=== PATIENT | female | born 1935 | race Caucasian/White ===

== ENCOUNTER 2019-04-11 20:54 | Inpatient (IN) | payer MEDICARE, BC ==
[2019-04-11] MEDS ORDERED: NITROGLYCERIN SL TABS 0.4 MG TAB SUBLINGUAL PRN (21:06)
--- NOTE | 2019-04-11 21:06 | ED ---
Recheck HPI - General Stated Complaint: bradycardia Time Seen by Provider: 04/11/19 21:04 Source: RN notes reviewed, old records reviewed - History of Present Illness Initial Comments: This is a 4-year-old female the ER for evaluation she presents today from a transfer for evaluation regarding bradycardia low heart rate. Patient's presenting for the heart rate today. She denies chest pain denies shortness of breath no acute distress blood pressure normal. History obtained from pain per transferring paperwork as well as EMS. Again currently patient's asymptomatic MD Complaint: other (abnormal Heart Rate) -: unknown Returns Today for: other (request cardiology consult) Symptoms Since Prior Visit: no new symptoms Associated Symptoms: none - Related Data Allergies Allergy/AdvReac Type Severity Reaction Status Date / Time CLONIDINE PATCH ADHESIVE Allergy Rash/Hives Uncoded 04/11/19 21:09 Review of Systems ROS Statement: Those systems with pertinent positive or pertinent negative responses have been documented in the HPI. ROS Other: All systems not noted in ROS Statement are negative. General Exam General appearance: alert, in no apparent distress Head exam: Present: atraumatic, normocephalic, normal inspection Eye exam: Present: normal appearance, PERRL, EOMI. Absent: scleral icterus, conjunctival injection, periorbital swelling ENT exam: Present: normal exam, mucous membranes moist Neck exam: Present: normal inspection. Absent: tenderness, meningismus, lymphadenopathy Respiratory exam: Present: normal lung sounds bilaterally. Absent: respiratory distress, wheezes, rales, rhonchi, stridor Cardiovascular Exam: Present: normal rhythm, bradycardia, normal heart sounds. Absent: systolic murmur, diastolic murmur, rubs, gallop, clicks GI/Abdominal exam: Present: soft, normal bowel sounds. Absent: distended, tenderness, guarding, rebound, rigid Extremities exam: Present: normal inspection, full ROM, normal capillary refill. Absent: tenderness, pedal edema, joint swelling, calf tenderness Back exam: Present: normal inspection Neurological exam: Present: alert, oriented X3, CN II-XII intact Psychiatric exam: Present: normal affect, normal mood Skin exam: Present: warm, dry, intact, normal color. Absent: rash Course Vital Signs 04/11/19 20:57 Temperature 98.2 F Pulse Rate 42 L Respiratory 18 Rate Blood Pressure 173/82 O2 Sat by Pulse 97 Oximetry - Reevaluation(s) Reevaluation #1: 04/11/19 21:11 Medical record and transferring paperwork is thoroughly reviewed Reevaluation #2: 04/11/19 21:11 Patient is asymptomatic currently Medical Decision Making - Medical Decision Making 84 female be admitted for evaluation, patient presents today is accepted in transfer for low heart rate bradycardia, blood pressure normal patient is stable and can be admitted for cardiology to evaluate and telemetry Disposition Clinical Impression: Bradycardia Disposition: ADMITTED IP TO THIS HOSP Condition: Fair Instructions (If sedation given, give patient instructions): Bradycardia (ED) Is patient prescribed a controlled substance at d/c from ED?: No Referrals: Cammy Stevens MD [Primary Care Provider] - 1-2 days
[2019-04-11] MEDS: PANTOPRAZOLE 40 MG TABLET PO SCH (23:43)
[2019-04-11] MEDS: cloNIDine HCL 0.2 MG TAB PO SCH (23:43)
[2019-04-11] MEDS: SODIUM CHLORIDE 0.9% 1,000 ML IV SCH (23:44)
[2019-04-12 04:43] LABS: Cholesterol 193 mg/dL (<200); HDL Cholesterol 40 mg/dL (40-60); LDL Cholesterol,Calculated 116 mg/dL (0-99); Triglycerides 187 mg/dL (<150)
[2019-04-12] MEDS: LEVOTHYROXINE 50 MCG TAB PO SCH (06:47)
[2019-04-12] MEDS: MAGNESIUM OXIDE 400 MG TAB PO SCH (08:36)
[2019-04-12] MEDS: PANTOPRAZOLE 40 MG TABLET PO SCH (08:36)
[2019-04-12] MEDS: CYANOCOBALAMIN 500 MCG TAB PO SCH (08:36)
[2019-04-12] MEDS: FLUoxetine HCL 20 MG CAP PO SCH (08:36)
[2019-04-12] MEDS: ASPIRIN 325 MG TAB PO SCH (08:36)
[2019-04-12] MEDS: CHOLECALCIFEROL 1,000 UNIT TAB PO SCH (08:36)
[2019-04-12] MEDS: VITAMIN E (DL,TOCOPHERYL ACET) 400 UNIT CAP PO SCH (08:46)
[2019-04-12] MEDS ORDERED: NON-FORMULARY DRUG (Soy Isofla/Blk Cohosh/Mag Bark [Estroven 155 Mg Capsule] 155 MG) PO SCH (09:00)
[2019-04-12] MEDS: cloNIDine HCL 0.2 MG TAB PO SCH (11:47)
--- NOTE | 2019-04-12 15:41 | P.CRDCN ---
History of Present Illness Consult date: 04/12/19 History of present illness: This is a 84-year-old female with history of hypertension who was transferred from [facility] for evaluation of bradycardia. Patient apparently has history of hypertension and has been treated with clonidine recently. Patient was taking 0.1 mg by mouth twice a day. The medication was changed to Catapres patch which patient could not tolerate. Patient was put back on clonidine 0.2 mg by mouth twice a day. Patient's blood pressure is not well controlled. It is running still high in the range of 170-200 systolic. In addition, patient has been having exertional pain in between the shoulder radius radiating to the neck and the head. In view of the symptoms and bradycardia. Patient was transferred here for further evaluation. Her EKG showed severe bradycardia with rate of 40s. Patient also has been sleepy. I'm wondering if this could be side effect of the medication, Catapres. I'm going to wean down the dose to 0.1 mg by mouth twice a day and start her on hydralazine 25 mg by mouth twice a day. Apparently patient was taking amlodipine, but developed significant swelling of the legs. She could not tolerate losartan or it was ineffective. I may also add small dose of hydrochlorothiazide. We'll get an echocardiogram done. So far. 2. Cardiac troponins are negative. If patient continues to have this pain, may consider getting a computed tomography scan of the chest. Further recommendation will depend upon clinical course Review of Systems As per the chart Past Medical History Past Medical History: Cancer, GERD/Reflux, Hypertension, Rheumatoid Arthritis (RA), Thyroid Disorder Additional Past Medical History / Comment(s): bladder cancer; pancreatisis History of Any Multi-Drug Resistant Organisms: None Reported Past Surgical History: Cholecystectomy, Orthopedic Surgery, Tonsillectomy Additional Past Surgical History / Comment(s): bile duct bigger, bilateral knee replacements Past Psychological History: No Psychological Hx Reported Smoking Status: Former smoker Past Alcohol Use History: None Reported Past Drug Use History: None Reported Medications and Allergies Home Medications Medication Instructions Recorded Confirmed Type Aspirin/Acetaminophen/Caffeine 1 - 2 tab PO Q4-6H PRN 04/11/19 04/11/19 History [Excedrin Extra Strength Caplet] Cholecalciferol (Vitamin D3) 2,000 unit PO DAILY 04/11/19 04/11/19 History [Vitamin D3] Cyanocobalamin (Vitamin B-12) 5,000 mcg PO DAILY 04/11/19 04/11/19 History [Vitamin B-12] FLUoxetine HCL [PROzac] 20 mg PO DAILY 04/11/19 04/11/19 History Levothyroxine Sodium [Synthroid] 50 mcg PO DAILY 04/11/19 04/11/19 History Magnesium Oxide [Mag-Ox] 400 mg PO Q48H 04/11/19 04/11/19 History Omeprazole Magnesium [PriLOSEC OTC] 20 mg PO DAILY 04/11/19 04/11/19 History Pramipexole [Mirapex] 0.125 mg PO DAILY PRN 04/11/19 04/11/19 History Soy Isofla/Blk Cohosh/Mag Bark 155 mg PO DAILY 04/11/19 04/11/19 History [Estroven 155 mg Capsule] Vitamin E (Dl,Tocopheryl Acet) 400 unit PO DAILY 04/11/19 04/11/19 History [Vitamin E] cloNIDine HCL [Catapres] 0.2 mg PO BID 04/11/19 04/11/19 History Allergies Allergy/AdvReac Type Severity Reaction Status Date / Time CLONIDINE PATCH ADHESIVE Allergy Rash/Hives Uncoded 04/11/19 21:09 Physical Exam Vitals: Vital Signs Temp Pulse Pulse Resp BP BP BP 04/12/19 15:29 97.9 F 53 L 16 172/87 04/12/19 11:40 98.4 F 45 L 20 158/70 04/12/19 08:00 97.9 F 46 L 16 121/58 04/12/19 04:00 97.5 F L 46 L 20 179/85 04/12/19 00:00 41 L 20 04/11/19 23:48 98 F 41 L 20 178/82 04/11/19 22:41 97.8 F 44 L 20 185/82 04/11/19 21:27 42 L 16 159/80 04/11/19 20:57 98.2 F 42 L 18 173/82 Pulse Ox 04/12/19 15:29 94 L 04/12/19 11:40 97 04/12/19 08:00 96 04/12/19 04:00 99 04/12/19 00:00 04/11/19 23:48 97 04/11/19 22:41 98 04/11/19 21:27 96 04/11/19 20:57 97 Intake and Output 04/12/19 04/12/19 04/12/19 06:59 14:59 22:59 Intake Total 150 240 Balance 150 240 Intake: Oral 150 240 Other: Voiding Method Toilet Toilet # Voids 2 4 Weight 80.3 kg GENERAL EXAM: Patient is alert and oriented and doesn't appear to be in any acute distress HEENT: Normocephalic. Normal reaction of pupils, equal size, normal range of extraocular motion. No erythema or exudates in the throat. NECK: No masses, no nuchal rigidity. CHEST: No chest wall deformity. LUNGS: Equal air entry with no crackles or wheeze. HEART: S1 and S2 normal with no audible mumurs or gallops. Regular rhythm, femorals equal on both sides.. ABDOMEN: No hepatosplenomegaly, normal bowel sounds, no guarding or rigidity. SKIN: No rashes CENTRAL NERVOUS SYSTEM: No focal deficits. EXTREMITIES: No cyanosis, clubbing or edema. Results Cardiac Enzymes 04/11/19 04/12/19 Range/Units 22:22 03:57 Troponin I <0.012 <0.012 (0.000-0.034) ng/mL Lipids 04/12/19 Range/Units 03:57 Triglycerides 187 H (<150) mg/dL Cholesterol 193 (<200) mg/dL HDL Cholesterol 40 (40-60) mg/dL Current Medications Generic Name Dose Route Start Last Admin Trade Name Ousmaneq PRN Reason Stop Dose Admin Aspirin 325 mg 04/12/19 09:00 04/12/19 08:36 Aspirin PO 325 mg DAILY GEOFFREY Administration Cholecalciferol 2,000 unit 04/12/19 09:00 04/12/19 08:36 Vitamin D3 (25 Mcg = 1000 Iu) PO 2,000 unit DAILY GEOFFREY Administration Clonidine 0.1 mg 04/12/19 21:00 Catapres PO BID GEOFFREY Cyanocobalamin 1,000 mcg 04/12/19 09:00 04/12/19 08:36 Vitamin B-12 PO 1,000 mcg DAILY GEOFFREY Administration Fluoxetine HCl 20 mg 04/12/19 09:00 04/12/19 08:36 Prozac PO 20 mg DAILY GEOFFREY Administration Hydralazine HCl 25 mg 04/12/19 21:00 Apresoline PO BID GEOFFREY Sodium Chloride 1,000 mls @ 20 mls/hr 04/11/19 21:15 04/11/19 23:44 Saline 0.9% IV Not Given .Q24H GEOFFREY Levothyroxine Sodium 50 mcg 04/12/19 06:30 04/12/19 06:47 Synthroid PO 50 mcg DAILY@0630 GEOFFREY Administration Magnesium Oxide 400 mg 04/12/19 09:00 04/12/19 08:36 Mag-Ox PO 400 mg Q48H GEOFFREY Administration Nitroglycerin 0.4 mg 04/11/19 21:06 Nitrostat SUBLINGUAL Q5M PRN Chest Pain Pantoprazole Sodium 40 mg 04/11/19 23:30 04/12/19 08:36 Protonix PO 40 mg DAILY GEOFFREY Administration Pramipexole Dihydrochloride 0.125 mg 04/11/19 23:24 Mirapex PO HS PRN RLS Vitamin E 400 unit 04/12/19 09:00 04/12/19 08:46 Vitamin E PO 400 unit DAILY GEOFFREY Administration Intake and Output 04/12/19 04/12/19 04/12/19 06:59 14:59 22:59 Intake Total 150 240 Balance 150 240 Intake: Oral 150 240 Other: Voiding Method Toilet Toilet # Voids 2 4 Weight 80.3 kg EKG Interpretations (text) Sinus bradycardia Assessment and Plan (1) Uncontrolled hypertension Current Visit: Yes Status: Acute Code(s): I10 - ESSENTIAL (PRIMARY) HYPERTENSION SNOMED Code(s): 41115813 (2) Bradycardia Current Visit: Yes Status: Acute Code(s): R00.1 - BRADYCARDIA, UNSPECIFIED SNOMED Code(s): 11770367 (3) Back pain Current Visit: Yes Status: Acute Code(s): M54.9 - DORSALGIA, UNSPECIFIED SNOMED Code(s): 996542679 Plan: Patient has bradycardia with heart rate is a 40. Patient seemed to be feeling fatigued and tired. I'm going to wean her off the Catapres slowly. I'll start her on hydralazine and hydrochlorothiazide combination. We'll get an echocardiogram done. If patient continues to have back pain, a computed tomography scan of the chest could be considered. Once her blood pressure is controlled and her heart rate improved, may consider doing a Lexiscan stress test to rule out underlying ischemic heart disease.
--- NOTE | 2019-04-12 15:55 | P.HPIM ---
History of Present Illness H&P Date: 04/12/19 Faina Barrett is an 84-year-old female patient of Dr. canas who presented to emergency room at [facility] with a chief complaint of upper back pain and dizziness she was evaluated in the hospital and had evidence of significant hypertension and bradycardia she was transferred to [facility] for evaluation by cardiology. Patient stated that she has been tried on several blood pressure medication in the recent past. Currently she is maintained on Catapres 0.1 mg by mouth twice daily. patient denies any previous history of cardiac disease no history of coronary artery disease or congestive heart failure she has a remote history of smoking she quit in 1979. She has a known history of hypothyroidism and is maintained on Synthroid 50 g daily she also has a known history of depression maintained on Prozac. Past Medical History Past Medical History: Cancer, GERD/Reflux, Hypertension, Rheumatoid Arthritis (RA), Thyroid Disorder Additional Past Medical History / Comment(s): bladder cancer; pancreatisis History of Any Multi-Drug Resistant Organisms: None Reported Past Surgical History: Cholecystectomy, Orthopedic Surgery, Tonsillectomy Additional Past Surgical History / Comment(s): bile duct bigger, bilateral knee replacements Past Psychological History: No Psychological Hx Reported Smoking Status: Former smoker Past Alcohol Use History: None Reported Past Drug Use History: None Reported Medications and Allergies Home Medications Medication Instructions Recorded Confirmed Type Aspirin/Acetaminophen/Caffeine 1 - 2 tab PO Q4-6H PRN 04/11/19 04/11/19 History [Excedrin Extra Strength Caplet] Cholecalciferol (Vitamin D3) 2,000 unit PO DAILY 04/11/19 04/11/19 History [Vitamin D3] Cyanocobalamin (Vitamin B-12) 5,000 mcg PO DAILY 04/11/19 04/11/19 History [Vitamin B-12] FLUoxetine HCL [PROzac] 20 mg PO DAILY 04/11/19 04/11/19 History Levothyroxine Sodium [Synthroid] 50 mcg PO DAILY 04/11/19 04/11/19 History Magnesium Oxide [Mag-Ox] 400 mg PO Q48H 04/11/19 04/11/19 History Omeprazole Magnesium [PriLOSEC OTC] 20 mg PO DAILY 04/11/19 04/11/19 History Pramipexole [Mirapex] 0.125 mg PO DAILY PRN 04/11/19 04/11/19 History Soy Isofla/Blk Cohosh/Mag Bark 155 mg PO DAILY 04/11/19 04/11/19 History [Estroven 155 mg Capsule] Vitamin E (Dl,Tocopheryl Acet) 400 unit PO DAILY 04/11/19 04/11/19 History [Vitamin E] cloNIDine HCL [Catapres] 0.2 mg PO BID 04/11/19 04/11/19 History Allergies Allergy/AdvReac Type Severity Reaction Status Date / Time CLONIDINE PATCH ADHESIVE Allergy Rash/Hives Uncoded 04/11/19 21:09 Physical Exam Vitals: Vital Signs Temp Pulse Pulse Resp BP BP BP 04/12/19 15:29 97.9 F 53 L 16 172/87 04/12/19 11:40 98.4 F 45 L 20 158/70 04/12/19 08:00 97.9 F 46 L 16 121/58 04/12/19 04:00 97.5 F L 46 L 20 179/85 04/12/19 00:00 41 L 20 04/11/19 23:48 98 F 41 L 20 178/82 04/11/19 22:41 97.8 F 44 L 20 185/82 04/11/19 21:27 42 L 16 159/80 04/11/19 20:57 98.2 F 42 L 18 173/82 Pulse Ox 04/12/19 15:29 94 L 04/12/19 11:40 97 04/12/19 08:00 96 04/12/19 04:00 99 04/12/19 00:00 04/11/19 23:48 97 04/11/19 22:41 98 04/11/19 21:27 96 04/11/19 20:57 97 Intake and Output 04/12/19 04/12/19 04/12/19 06:59 14:59 22:59 Intake Total 150 240 Balance 150 240 Intake: Oral 150 240 Other: Voiding Method Toilet Toilet # Voids 2 4 Weight 80.3 kg In general patient is alert and oriented 3 in no apparent distress HEENT head normocephalic and atraumatic Neck is supple no JVD no goiter no lymphadenopathy Chest exam reveals a few scattered rhonchi no wheezing Cardiac exam reveals regular heart sounds no gallops no murmurs Abdomen is soft nontender no organomegaly with normal bowel sounds Extremity exam reveals no edema no cyanosis or clubbing Results Labs: Abnormal Lab Results - Last 24 Hours (Table) 04/12/19 Range/Units 03:57 Triglycerides 187 H (<150) mg/dL LDL Cholesterol, Calc 116 H (0-99) mg/dL Thrombosis Risk Factor Assmnt - Choose All That Apply Each Factor Represents 1 point: Obesity (BMI >25), Varicose veins Other Risk Factors: Yes Each Risk Factor Represents 3 Points: Age 75 years or older Other congenital or acquired thrombophilia - If yes, enter type in comment: No Thrombosis Risk Factor Assessment Total Risk Factor Score: 5 Thrombosis Risk Factor Assessment Level: High Risk Assessment and Plan Plan: #1 hypertension was hypertensive emergency #2 episodes of upper back pain with activity #3 episodes of dizziness #4 bradycardia heart rate 40-45 bpm #5 underlying history of hypothyroidism Will check TSH #6 underlying history of depression At this time will check echocardiogram and carotid Doppler Cardiology consultation has been requested Continue to monitor on telemetry Check TSH and adjust thyroid medication if needed Check thoracic spine x-ray rule out vertebral fracture Will follow in a.m.
[2019-04-12] MEDS: HYDROCHLOROTHIAZIDE 12.5 MG CAP PO SCH (16:10)
--- NOTE | 2019-04-12 17:15 | XR ---
EXAMINATION TYPE: XR thoracic spine complete DATE OF EXAM: 04/12/2019 Comparison: None Clinical History: 84-year-old female upper back pain Findings: Osteopenia. 12 rib bearing thoracic vertebral bodies. All pedicles are visualized. Accentuated mid th oracic kyphosis with moderate endplate spondylosis. Vertebral body heights are preserved and alignmen t is maintained. Impression: Moderate endplate spondylosis with accentuated midthoracic kyphosis. No vertebral compression collaps e or malalignment seen.
--- NOTE | 2019-04-12 18:45 | US ---
EXAMINATION TYPE: US carotid duplex BILAT DATE OF EXAM: 04/12/2019 COMPARISON: NONE CLINICAL HISTORY: 84-year-old female with Dizziness TECHNIQUE: Carotid duplex ultrasound examination. Indirect Doppler criteria is utilized. FINDINGS: EXAM MEASUREMENTS: RIGHT: Peak Systolic Velocity (PSV) cm/sec ----- Right CCA: 79.4 ----- Right ICA: 63.7 ----- Right ECA: 61.5 ICA/CCA ratio: 0.8 RIGHT: End Diastole cm/sec ----- Right CCA: 12.3 ----- Right ICA: 12.9 ----- Right ECA: 0.0 LEFT: Peak Systolic Velocity (PSV) cm/sec ----- Left CCA: 81.7 ----- Left ICA: 73.4 ----- Left ECA: 46.1 ICA/CCA ratio: 0.9 LEFT: End Diastole cm/sec ----- Left CCA: 12.4 ----- Left ICA: 20.2 ----- Left ECA: 4.7 VERTEBRALS (direction of flow): Right Vertebral: Antegrade Left Vertebral: Antegrade Rhythm: Normal Moderate atherosclerotic changes at the right bifurcation and mild on the left. IMPRESSION: No hemodynamically significant stenosis appreciated in either internal carotid artery. Criteria for Assigning % of Stenosis / Diameter reduction (Estimation based on the indirect measurements of the internal carotid artery velocities (ICA PSV). 1. Normal (no stenosis)=ICA PSV < 125 cm/s: ratio < 2.0: ICA EDV<40 cm/s. 2. Less than 50% stenosis=ICA PSV < 125 cm/s: ratio < 2.0: ICA EDV<40 cm/s. 3. 50 to 69% stenosis=ICA PSV of 125 to 230 cm/s: ration 2.0 ? 4.0: ICA EDV 40-100 cm/s. 4. Greater than 70% stenosis to near occlusion= ICA PSV > 230 cm/s: ratio > 4.0: ICA EDV > 100 cm/s. 5. Near occlusion= ICA PSV velocities may be low or undetectable: variable ratio and ICA EDV. 6. Total occlusion=unable to detect flow.
[2019-04-12] MEDS: hydrALAZINE HCL 25 MG TAB PO SCH (20:49)
[2019-04-12] MEDS: cloNIDine HCL 0.1 MG TAB PO SCH (20:50)
[2019-04-13] MEDS: SODIUM CHLORIDE 0.9% 1,000 ML IV SCH (01:03)
[2019-04-13] MEDS: PRAMIPEXOLE 0.125 MG TAB PO PRN ×2 (02:13→22:16)
[2019-04-13] MEDS: LEVOTHYROXINE 50 MCG TAB PO SCH (06:41)
[2019-04-13 07:04] LABS: Basophils % (A) 1 %; Eosinophils # (A) 0.2 k/uL (0-0.7); Eosinophils % (A) 4 %; HCT 34.7 % (34.0-46.0); HGB 10.6 gm/dL (11.4-16.0); Lymphocytes % (A) 34 %; MCHC 30.5 g/dL (31.0-37.0); MCV 88.5 fL (80.0-100.0); Mean Platelet Volume 7.8; Monocytes # (A) 0.3 k/uL (0-1.0); Monocytes % (A) 5 %; Neutrophils # (A) 3.2 k/uL (1.3-7.7); Neutrophils % (A) 55 %; Platelet Count 258 k/uL (150-450); RBC 3.92 m/uL (3.80-5.40); RDW 14.3 % (11.5-15.5); WBC 5.9 k/uL (3.8-10.6)
[2019-04-13 07:20] LABS: Albumin 4.2 g/dL (3.5-5.0); Calcium 9.7 mg/dL (8.4-10.2); Potassium 4.4 mmol/L (3.5-5.1); Total Bilirubin 0.4 mg/dL (0.2-1.3); Total Protein 6.9 g/dL (6.3-8.2)
[2019-04-13] MEDS: ASPIRIN 325 MG TAB PO SCH (08:18)
[2019-04-13] MEDS: CYANOCOBALAMIN 500 MCG TAB PO SCH (08:19)
[2019-04-13] MEDS: cloNIDine HCL 0.1 MG TAB PO SCH ×2 (08:19→21:30)
[2019-04-13] MEDS: PANTOPRAZOLE 40 MG TABLET PO SCH (08:19)
[2019-04-13] MEDS: HYDROCHLOROTHIAZIDE 12.5 MG CAP PO SCH (08:19)
[2019-04-13] MEDS: VITAMIN E (DL,TOCOPHERYL ACET) 400 UNIT CAP PO SCH (08:19)
[2019-04-13] MEDS: FLUoxetine HCL 20 MG CAP PO SCH (08:19)
[2019-04-13] MEDS: CHOLECALCIFEROL 1,000 UNIT TAB PO SCH (08:19)
[2019-04-13 08:57] LABS: T4, Free (Free Thyroxine) 1.01 ng/dL (0.78-2.19)
[2019-04-13] MEDS: hydrALAZINE HCL 25 MG TAB PO SCH (11:04)
--- NOTE | 2019-04-13 12:28 | P.PN ---
Subjective Progress Note Date: 04/13/19 This 84-year-old female is admitted to the hospital with back pain and also bradycardia. We cut back the dose of the Catapres to 0.1 mg by mouth twice a day. Patient was initiated on hydralazine and hydrochlorothiazide. Patient is been feeling well since yesterday. Her blood pressure is better controlled. Heart rate seems to be going and improving to the range of 50. I'm going cut back the dose of the Catapres to 0.1 mg and probably will taper it off if necessary. Increase activity as tolerated Objective - Vital Signs Vital signs: Vital Signs Temp 97.9 F 04/13/19 11:04 Pulse 48 L 04/13/19 11:04 Resp 16 04/13/19 11:04 BP 160/72 04/13/19 11:04 Pulse Ox 96 04/13/19 11:04 Intake & Output 04/12/19 04/13/19 04/13/19 18:59 06:59 18:59 Intake Total 717 480 Balance 717 480 Weight 79.6 kg Intake: Oral 717 480 Other: Voiding Method Toilet Toilet # Voids 4 1 - Exam GENERAL EXAM: Patient is alert and oriented and doesn't appear to be in any acute distress HEENT: Normocephalic. Normal reaction of pupils, equal size, normal range of extraocular motion. No erythema or exudates in the throat. NECK: No masses, no nuchal rigidity. CHEST: No chest wall deformity. LUNGS: Equal air entry with no crackles or wheeze. HEART: S1 and S2 normal with no audible mumurs or gallops. Regular rhythm, femorals equal on both sides.. ABDOMEN: No hepatosplenomegaly, normal bowel sounds, no guarding or rigidity. SKIN: No rashes CENTRAL NERVOUS SYSTEM: No focal deficits. EXTREMITIES: No cyanosis, clubbing or edema. - Labs CBC & Chem 7: 04/13/19 06:15 04/13/19 06:15 Labs: Abnormal Lab Results - Last 24 Hours (Table) 04/13/19 04/13/19 Range/Units 06:15 06:15 Hgb 10.6 L (11.4-16.0) gm/dL MCHC 30.5 L (31.0-37.0) g/dL BUN 21 H (7-17) mg/dL Creatinine 1.18 H (0.52-1.04) mg/dL TSH 6.980 H (0.465-4.680) mIU/L Assessment and Plan (1) Uncontrolled hypertension Current Visit: Yes Status: Acute Code(s): I10 - ESSENTIAL (PRIMARY) HY PERTENSION SNOMED Code(s): 27752222 (2) Bradycardia Current Visit: Yes Status: Acute Code(s): R00.1 - BRADYCARDIA, UNSPECIFIED SNOMED Code(s): 33705898 (3) Back pain Current Visit: Yes Status: Acute Code(s): M54.9 - DORSALGIA, UNSPECIFIED SNOMED Code(s): 014720441 Plan: Patient is feeling much better. Her blood pressure is better controlled. We'll taper off Catapres slowly. Increase the dose of hydralazine. Increase activity
--- NOTE | 2019-04-13 12:43 | P.PN ---
Subjective Progress Note Date: 04/13/19 Faina Barrett is an 84-year-old female patient of Dr. canas who presented to emergency room at [facility] with a chief complaint of upper back pain and dizziness she was evaluated in the hospital and had evidence of significant hypertension and bradycardia she was transferred to [facility] for evaluation by cardiology. Patient stated that she has been tried on several blood pressure medication in the recent past. Currently she is maintained on Catapres 0.1 mg by mouth twice daily. patient denies any previous history of cardiac disease no history of coronary artery disease or congestive heart failure she has a remote history of smoking she quit in 1979. She has a k nown history of hypothyroidism and is maintained on Synthroid 50 g daily she also has a known history of depression maintained on Prozac. On 04/13/2019 patient is seen and examined on the medical floor she is alert and oriented 3 in no apparent distress heart rate is still low at 46-48 bpm her u pper back pain has improved, she denies any other symptoms at this time there is no fever or chills no headache or dizziness no chest pain no shortness of breath no cough no nausea or vomiting no abdominal pain no diarrhea and no urinary symptoms. Per cardiology, taper off clonidine and start hydralazine and hydrochlorothiazide. Also patient TSH was elevated with increased dose of Synthroid from 50 g daily to 75 g daily Objective - Vital Signs Vital signs: Vital Signs Temp 98.2 F 04/13/19 08:00 Pulse 52 L 04/13/19 08:00 Resp 20 04/13/19 08:00 BP 123/58 04/13/19 08:00 Pulse Ox 100 04/13/19 08:00 Intake & Output 04/12/19 04/13/19 04/13/19 18:59 06:59 18:59 Intake Total 717 480 Balance 717 480 Weight 79.6 kg Intake: Oral 717 480 Other: Voiding Method Toilet Toilet # Voids 4 1 - Exam In general patient is alert and oriented 3 in no apparent distress HEENT head normocephalic and atraumatic Neck is supple no JVD no goiter no lymphadenopathy Chest exam reveals a few scattered rhonchi no wheezing Cardiac exam reveals regular heart sounds no gallops no murmurs Abdomen is soft nontender no organomegaly with normal bowel sounds Extremity exam reveals no edema no cyanosis or clubbing - Labs CBC & Chem 7: 04/13/19 06:15 04/13/19 06:15 Labs: Abnormal Lab Results - Last 24 Hours (Table) 04/13/19 04/13/19 Range/Units 06:15 06:15 Hgb 10.6 L (11.4-16.0) gm/dL MCHC 30.5 L (31.0-37.0) g/dL BUN 21 H (7-17) mg/dL Creatinine 1.18 H (0.52-1.04) mg/dL TSH 6.980 H (0.465-4.680) mIU/L Assessment and Plan Plan: #1 hypertension was hypertensive emergency #2 episodes of upper back pain with activity #3 episodes of dizziness, carotid Doppler done no evidence of any significant stenosis #4 bradycardia heart rate 40-45 bpm #5 underlying history of hypothyroidism. TSH elevated at 6.98 increase Synthroid dose from 50 g daily to 75 g daily #6 underlying history of depression At this time will check echocardiogram and carotid Doppler Cardiology consultation has been requested Continue to monitor on telemetry thoracic spine x-ray rule done and reveals evidence of arthritis, no evidence of vertebral fracture Will follow in a.m.
[2019-04-13] MEDS ORDERED: BENZOCAINE 20 % GEL 15 GM TUBE MM PRN (17:49)
[2019-04-13] MEDS: hydrALAZINE HCL 50 MG TAB PO SCH (22:13)
[2019-04-14] MEDS ORDERED: LEVOTHYROXINE 75 MCG TAB PO SCH (06:30)
[2019-04-14 06:57] VITALS: RESP 18
[2019-04-14] MEDS: SODIUM CHLORIDE 0.9% 1,000 ML IV SCH (06:58)
[2019-04-14 07:06] LABS: Basophils # (A) 0.1 k/uL (0-0.2); Basophils % (A) 1 %; Eosinophils # (A) 0.3 k/uL (0-0.7); Eosinophils % (A) 5 %; HCT 35.4 % (34.0-46.0); Hypochromasia Slight; Lymphocytes # (A) 1.8 k/uL (1.0-4.8); Lymphocytes % (A) 32 %; MCH 27.2 pg (25.0-35.0); MCHC 31.2 g/dL (31.0-37.0); MCV 87.3 fL (80.0-100.0); Mean Platelet Volume 8.2; Monocytes # (A) 0.3 k/uL (0-1.0); Monocytes % (A) 6 %; Neutrophils % (A) 54 %; Platelet Count 240 k/uL (150-450); RBC 4.05 m/uL (3.80-5.40); RDW 14.9 % (11.5-15.5); WBC 5.6 k/uL (3.8-10.6)
[2019-04-14 07:31] LABS: Albumin 4.3 g/dL (3.5-5.0); Calcium 9.9 mg/dL (8.4-10.2); Potassium 4.9 mmol/L (3.5-5.1); Total Bilirubin 0.5 mg/dL (0.2-1.3); Total Protein 7.2 g/dL (6.3-8.2)
[2019-04-14] MEDS: VITAMIN E (DL,TOCOPHERYL ACET) 400 UNIT CAP PO SCH (08:18)
[2019-04-14] MEDS: CYANOCOBALAMIN 500 MCG TAB PO SCH (08:18)
[2019-04-14] MEDS: ASPIRIN 325 MG TAB PO SCH (08:18)
[2019-04-14] MEDS: PANTOPRAZOLE 40 MG TABLET PO SCH (08:18)
[2019-04-14] MEDS: MAGNESIUM OXIDE 400 MG TAB PO SCH (08:18)
[2019-04-14] MEDS: CHOLECALCIFEROL 1,000 UNIT TAB PO SCH (08:18)
[2019-04-14] MEDS: HYDROCHLOROTHIAZIDE 12.5 MG CAP PO SCH (08:18)
[2019-04-14] MEDS: hydrALAZINE HCL 50 MG TAB PO SCH (08:19)
[2019-04-14] MEDS: FLUoxetine HCL 20 MG CAP PO SCH (08:19)
[2019-04-14] MEDS ORDERED: cloNIDine HCL 0.1 MG TAB PO SCH (09:00)
--- NOTE | 2019-04-14 09:31 | ECHOF ---
Referral Reason:Chest pain and cardiomyopathy MEASUREMENTS -------- HEIGHT: 157.5 cm WEIGHT: 79.4 kg BP: 143/66 IVSd: 1.5 cm (0.6 - 1.1) LVIDd: 3.7 cm (3.9 - 5.3) LVPWd: 1.5 cm (0.6 - 1.1) IVSs: 1.9 cm LVIDs: 1.5 cm LVPWs: 1.7 cm LAESV Index (A-L): 32.69 ml/m Ao Diam: 2.7 cm (2.0 - 3.7) AV Cusp: 1.3 cm (1.5 - 2.6) LA Diam: 3.6 cm (2.7 - 3.8) MV EXCURSION: 13.189 mm (> 18.000) MV EF SLOPE: 58 mm/s (70 - 150) EPSS: 0.4 cm MV E Mukund: 1.01 m/s MV DecT: 312 ms MV A Mukund: 1.29 m/s MV E/A Ratio: 0.78 AV maxP.58 mmHg AV meanP.88 mmHg RAP: 5.00 mmHg RVSP: 42.15 mmHg FINDINGS -------- Sinus rhythm. This was a technically good study. The left ventricular size is normal. There is moderate concentric left ventricular hypertrophy. O verall left ventricular systolic function is normal with, an EF between 55 - 60 %. The right ventricle is normal in size. LA is midly dilated 29-33ml/m2. The right atrial size is normal. There is moderate aortic valve sclerosis. There is mild aortic stenosis present. Peak/mean gradie nt across the Aortic Valve is 28.58mmHg / 15.88mmHg. The mitral valve leaflets are mildly thickened. Moderate mitral annular calcification present. Mi ld mitral regurgitation is present. [id number] tricuspid regurgitation present. There is mild pulmonary hypertension. The right ventricular systolic pressure, as measured by Doppler, is 42.15mmHg. There is no pulmonic regurgitation present. The aortic root size is normal. Normal inferior vena cava with normal inspiratory collapse consistent with estimated right atrial pre ssure of 5 mmHg. There is no pericardial effusion. CONCLUSIONS -------- 1. Sinus rhythm. 2. This was a technically good study. 3. The left ventricular size is normal. 4. There is moderate concentric left ventricular hypertrophy. 5. Overall left ventricular systolic function is normal with, an EF between 55 - 60 %. 6. LA is midly dilated 29-33ml/m2. 7. There is moderate aortic valve sclerosis. 8. There is mild aortic stenosis present. 9. Peak/mean gradient across the Aortic Valve is 28.58mmHg / 15.88mmHg. 10. The mitral valve leaflets are mildly thickened. 11. Moderate mitral annular calcification present. 12. Mild mitral regurgitation is present. 13. Anbp-yn-bmuxqoiv tricuspid regurgitation present. 14. There is mild pulmonary hypertension. 15. There is no pulmonic regurgitation present. 16. The aortic root size is normal. 17. Normal inferior vena cava with normal inspiratory collapse consistent with estimated right atrial pressure of 5 mmHg. 18. There is no pericardial effusion. LEATHER POLISHER: Evita Hicks RDCS
[2019-04-14 12:16] VITALS: PULSE 55; TEMP 97.7
[2019-04-14 13:54] VITALS: BP 166/74
--- NOTE | 2019-04-14 14:23 | P.DS ---
Providers Date of admission: 04/11/19 21:06 Expected date of discharge: 04/14/19 Attending physician: Latricia Huff Consults: 04/11/19 21:06 Consult Physician Urgent Consulting Provider: Sofia La Consult Reason/Comments: chastity Do you want consulting provider notified?: Yes Primary care physician: Cammy Stevens Hospital Course: Discharge diagnosis #1 hypertension was hypertensive emergency #2 episodes of upper back pain with activity #3 episodes of dizziness, carotid Doppler done no evidence of any significant stenosis #4 bradycardia heart rate 40-45 bpm #5 underlying history of hypothyroidism. TSH elevated at 6.98 increase Synthroid dose from 50 g daily to 75 g daily #6 underlying history of depression thoracic spine x-ray rule done and reveals evidence of arthritis, no evidence of vertebral fracture Carotid Doppler completed showing no hemodynamically significant stenosis in either internal carotid artery 2-D echo completed showing EF of 55-60% Hydralazine 50mg 3 times a day on discharge and hydrochlorothiazide will 0.5 by mouth daily cardiology Catapres 0.1 mg by mouth daily per cardiology. Patient to follow-up [facility] cardio logy for eventual d/c of medication Hospital course Faina Barrett is an 84-year-old female patient of Dr. stevens who presented to emergency room at [facility] with a chief complaint of upper back pain and dizziness she was evaluated in the hospital and had evidence of significant hypertension and bradycardia she was transferred to [facility] for evaluation by cardiology. Patient stated that she has been tried on several blood pressure medication in the recent past. Currently she is maintained on Catapres 0.1 mg by mouth twice daily. patient denies any previous history of cardiac disease no history of coronary artery disease or congestive heart failure she has a remote history of smoking she quit in 1979. She has a known history of hypothyroidism and is maintained on Synthroid 50 g daily she also has a known history of depression maintained on Prozac. On 04/13/2019 patient is seen and examined on the medical floor she is alert and oriented 3 in no apparent distress heart rate is still low at 46-48 bpm her upper back pain has improved, she denies any other symptoms at this time there is no fever or chills no headache or dizziness no chest pain no shortness of breath no cough no nausea or vomiting no abdominal pain no diarrhea and no urinary symptoms. Per cardiology, taper off clonidine and start hydralazine and hydrochlorothiazide. Also patient TSH was elevated with increased dose of Synthroid from 50 g daily to 75 g daily On 04/14/2019 patient is alert and oriented 3. Heart rate has been in the high 50s and 60s. Discussed with cardiology BLACKJACK DEALER Dr. Mess. Beltran for discharge home. Patient to be DC'd on lower dose of Catapres 0.1 mg daily per cardiology and followed cardiology services for further management. Patient was started on hydrochlorothiazide and hydralazine for hypertension. Hydralazine has been increased to 3 times a day due to elevated blood pressure. Blood pressure has improved. Patient feels ready to be DC'd home. Patient denies chest pain or shortness breath. Patient denies nausea vomiting or diarrhea. Patient denies any urinary burning or frequency. Patient Synthroid also increased to 75 ug daily. Patient to follow with PCP and cardiology services for further management I performed an examination of the patient and discussed their management with the Nurse Practitioner. I have reviewed the Nurse Practitioner's notes and agree with the documented findings and plan of care Patient Condition at Discharge: Stable Plan - Discharge Summary Discharge Rx Participant: No New Discharge Prescriptions: New hydrALAZINE HCL [Apresoline] 50 mg PO TID 30 Days #90 tab Aspirin 81 mg PO DAILY 30 Days #30 chew cloNIDine HCL [Catapres] 0.1 mg PO DAILY 30 Days #30 tab Hydrochlorothiazide [Hydrodiuril] 12.5 mg PO DAILY 30 Days #30 cap Levothyroxine Sodium [Synthroid] 75 mcg PO DAILY@0630 30 Days #30 tab Continue Magnesium Oxide [Mag-Ox] 400 mg PO Q48H Vitamin E (Dl,Tocopheryl Acet) [Vitamin E] 400 unit PO DAILY Soy Isofla/Blk Cohosh/Mag Bark [Estroven 155 mg Capsule] 155 mg PO DAILY Pramipexole [Mirapex] 0.125 mg PO DAILY PRN PRN Reason: RLS Cyanocobalamin (Vitamin B-12) [Vitamin B-12] 5,000 mcg PO DAILY Cholecalciferol (Vitamin D3) [Vitamin D3] 2,000 unit PO DAILY Omeprazole Magnesium [PriLOSEC OTC] 20 mg PO DAILY FLUoxetine HCL [PROzac] 20 mg PO DAILY Aspirin/Acetaminophen/Caffeine [Excedrin Extra Strength Caplet] 1 - 2 tab PO Q4-6H PRN PRN Reason: Migraine Headache Discontinued cloNIDine HCL [Catapres] 0.2 mg PO BID Levothyroxine Sodium [Synthroid] 50 mcg PO DAILY Discharge Medication List Aspirin/Acetaminophen/Caffeine [Excedrin Extra Strength Caplet] 1 - 2 tab PO Q4- 6H PRN 04/11/19 [History] Cholecalciferol (Vitamin D3) [Vitamin D3] 2,000 unit PO DAILY 04/11/19 [History] Cyanocobalamin (Vitamin B-12) [Vitamin B-12] 5,000 mcg PO DAILY 04/11/19 [History] FLUoxetine HCL [PROzac] 20 mg PO DAILY 04/11/19 [History] Magnesium Oxide [Mag-Ox] 400 mg PO Q48H 04/11/19 [History] Omeprazole Magnesium [PriLOSEC OTC] 20 mg PO DAILY 04/11/19 [History] Pramipexole [Mirapex] 0.125 mg PO DAILY PRN 04/11/19 [History] Soy Isofla/Blk Cohosh/Mag Bark [Estroven 155 mg Capsule] 155 mg PO DAILY 04/11/19 [History] Vitamin E (Dl,Tocopheryl Acet) [Vitamin E] 400 unit PO DAILY 04/11/19 [History] Aspirin 81 mg PO DAILY 30 Days #30 chew 04/14/19 [Rx] Hydrochlorothiazide [Hydrodiuril] 12.5 mg PO DAILY 30 Days #30 cap 04/14/19 [Rx] Levothyroxine Sodium [Synthroid] 75 mcg PO DAILY@0630 30 Days #30 tab 04/14/19 [Rx] cloNIDine HCL [Catapres] 0.1 mg PO DAILY 30 Days #30 tab 04/14/19 [Rx] hydrALAZINE HCL [Apresoline] 50 mg PO TID 30 Days #90 tab 04/14/19 [Rx] Follow up Appointment(s)/Referral(s): Cammy Stevens MD [Primary Care Provider] - 04/21/19 1:15 pm (Sunday) Volodymyr Howard MD [STAFF PHYSICIAN] - 1 Week ([facility] office will call you at home to let you know if you can see Dr. Howard in [facility]) Ambulatory/Diagnostic Orders: Comprehensive Metabolic Panel [LAB.AMB] Time Frame: 2 Days, Location: None Selected Patient Instructions/Handouts: Bradycardia (ED) Activity/Diet/Wound Care/Special Instructions: activity as tolerated Diet heart healthy Discharge Disposition: HOME SELF-CARE
[2019-04-14] MEDS ORDERED: HYDROCHLOROTHIAZIDE 25 MG TAB PO SCH (15:30)
--- NOTE | 2019-04-14 15:31 | P.PN ---
Subjective Progress Note Date: 04/14/19 This is a 84-year-old female with history of hypertension who was transferred from [facility] for evaluation of bradycardia. Patient apparently has history of hypertension and has been treated with clonidine recently. Patient was taking 0.1 mg by mouth twice a day. The medication was changed to Catapres patch which patient could not tolerate. Patient was put back on clonidine 0.2 mg by mouth twice a day. Patient's blood pressure is not well controlled. It is running still high in the range of 170-200 systolic. In addition, patient has been having exertional pain in between the shoulder radius radiating to the neck and the head. In view of the symptoms and bradycardia. Patient was transferred here for further evaluation. Her EKG showed severe bradycardia with rate of 40s. Patient also has been sleepy. I'm wondering if this could be side effect of the medication, Catapres. I'm going to wean down the dose to 0.1 mg by mouth twice a day and start her on hydralazine 25 mg by mouth twice a day. Apparently patient was taking amlodipine, but developed significant swelling of the legs. She could not tolerate losartan or it was ineffective. I may also add small dose of hydrochlorothiazide. We'll get an echocardiogram done. So far. 2. Cardiac troponins are negative. If patient continues to have this pain, may consider getting a computed tomography scan of the chest. Further recommendation will depend upon clinical course. 04/14/2019 Patient seen and examined this morning, doing well overall. Heart rate in the high 50s to low 60s. Blood pressure in the 140 range earlier today, then it went up to 190 systolic. We will increase the hydrochlorothiazide to 25 mg daily and continue the patient's other medications. Echocardiogram with Doppler study was performed which revealed a normal left ventricular systolic function.. Objective - Vital Signs Vital signs: Vital Signs Temp 97.7 F 04/14/19 12:14 Pulse 55 L 04/14/19 12:14 Resp 18 04/14/19 12:14 BP 166/74 04/14/19 13:53 Pulse Ox 98 04/14/19 12:14 Intake & Output 04/13/19 04/14/19 04/14/19 18:59 06:59 18:59 Intake Total 1320 720 Balance 1320 720 Weight 77.8 kg Intake: IV 0 Sodium Chloride 0.9% 1, 0 000 ml @ 20 mls/hr IV . Q24H [facility] Rx#:[id number] Oral 1320 720 Other: Voiding Method Toilet Toilet Toilet # Voids 1 4 - Exam GENERAL EXAM: Patient is alert and oriented and doesn't appear to be in any acut e distress HEENT: Normocephalic. Normal reaction of pupils, equal size, normal range of extraocular motion. No erythema or exudates in the throat. NECK: No masses, no nuchal rigidity. CHEST: No chest wall deformity. LUNGS: Equal air entry with no crackles or wheeze. HEART: S1 and S2 normal with no audible mumurs or gallops. Regular rhythm, femorals equal on both sides.. ABDOMEN: No hepatosplenomegaly, normal bowel sounds, no guarding or rigidity. SKIN: No rashes CENTRAL NERVOUS SYSTEM: No focal deficits. EXTREMITIES: No cyanosis, clubbing or edema. - Labs CBC & Chem 7: 04/14/19 06:17 04/14/19 06:17 Labs: Abnormal Lab Results - Last 24 Hours (Table) 04/14/19 04/14/19 Range/Units 06:17 06:17 Hgb 11.0 L (11.4-16.0) gm/dL BUN 23 H (7-17) mg/dL Creatinine 1.22 H (0.52-1.04) mg/dL Assessment and Plan Plan: Assessment and plan #1 hypertensive emergency, blood pressure today 140/80, 190/60, we will increase hydrochlorothiazide to 25 mg daily #2 bradycardia resolved #3 underlying history of hypothyroidism #4 depression Plan From cardiology's perspective, we'll increase the Hytrin or thiazide to 25 mg daily, patient may be able to be discharged home from our perspective and we'll make her a follow-up appointment in the office post discharge. DNP note has been reviewed, I agree with a documented findings and plan of care. Patient was seen and examined.
[2019-04-14] MEDS ORDERED: hydrALAZINE HCL 50 MG TAB PO SCH (16:00)
[2019-04-15] MEDS ORDERED: ASPIRIN 81 MG PO SCH (09:00)
== END 2019-04-14 15:56 | disposition home or self-care (01) | DRG 305 ==
LOC: EC 20:54 → 3SCARD 21:06
PROVIDERS: ADMIT Internal Medicine; ATTEND Internal Medicine
DX: I16.1 Hypertensive emergency (principal); R00.1 Bradycardia, unspecified; I10 Essential (primary) hypertension; E03.9 Hypothyroidism, unspecified; F32.9 Major depressive disorder, single episode, unspecified; M54.6 Pain in thoracic spine; K21.9 Gastro-esophageal reflux disease without esophagitis; M06.9 Rheumatoid arthritis, unspecified; Z96.653 Presence of artificial knee joint, bilateral; Z85.51 Personal history of malignant neoplasm of bladder; Z90.49 Acquired absence of other specified parts of digestive tract; Z87.891 Personal history of nicotine dependence; Z79.82 Long term (current) use of aspirin; Z79.890 Hormone replacement therapy; Z79.899 Other long term (current) drug therapy; Z88.8 Allergy status to other drugs, medicaments and biological substances
CPT/HCPCS: 72072; 80053; 80061; 84439; 84443; 84484; 85025; 93005; 93306; 93880; 99285

== ENCOUNTER → 2019-06-13 | Day surgery (SDC) | payer MEDICARE, BC ==
[2019-06-09 09:28] VITALS: BMI 29.9
[~2019-06-13] MED LIST: ALPRAZolam 0.25 MG TAB PO PRN; ALPRAZolam 0.5 MG TAB PO PRN; ASPIRIN 325 MG TAB PO STA; ATORVASTATIN 80 MG TAB PO STA; IOPAMIDOL-370 100ML BTL INJ ONE; LIDOCAINE 1% INJ 10MG/ML (20 ML MDV) ONE; LIDOCAINE 1% INJ 10MG/ML (20 ML MDV) SQ ONE; MIDAZOLAM PF (FBP) 2 MG/2 ML VIAL IVP ONE; NITROGLYCERIN SL TABS 0.4 MG TAB SUBLINGUAL PRN; RX INFO: IV CONTRAST WAS GIVEN 1 EACH MISC MISCELLANE PRN; SODIUM CHLORIDE 0.9% 1,000 ML IV ONE; SODIUM CHLORIDE 0.9% 1,000 ML IV SCH; SODIUM CHLORIDE 0.9% 1,000 ML in EMPTY BAG 1 BAG IV ONE; VERAPAMIL 2.5 MG/ML 2 ML AMP ONE
[2019-06-13 08:33] VITALS: TEMP 97.9
[2019-06-13 08:38] LABS: Calcium 9.3 mg/dL (8.4-10.2)
--- NOTE | 2019-06-13 10:08 | CC ---
CARDIAC CATHETERIZATION REPORT DATE OF SERVICE: June 13, 2019 PERFORMING PHYSICIAN: Volodymyr Howard MD, free lance model. PROCEDURE PERFORMED: 1. Selective right and left coronary angiogram. 2. Left heart catheterization. COMPLICATION: None. LEVEL OF SEDATION: Moderate with sedation length of 17 minutes. PROCEDURE DESCRIPTION: After obtaining an informed consent, the patient was brought to the cardiac civil laboratory technician. The right common femoral artery was cannulated using micropuncture technique, the micropuncture wire passed easily then I placed a 5-Thai sheath. I did selective right and left coronary angiogram using JR4 and JL4 catheters. Left heart catheterization was performed using pigtail catheter. The procedure was completed without any complication. SELECTIVE CORONARY ANGIOGRAM: 1. The right coronary artery is a small to medium caliber vessel and it is a nondominant vessel, appeared to be angiographically normal. 2. The left main is angiographically normal. It bifurcates into dominant left circumflex and left anterior descending artery. 3. The left circumflex is a large caliber vessel. It is a dominant. The left circumflex proximally is tortuous, but normal and gives rise into first OM branch which seems to be normal. The mid circumflex is normal and gives rise into second OM which seems to be normal and the circumflex distally is normal and bifurcates into PDA and PLV branches, both appear to be normal. 4. The LAD: LAD is angiographically normal. It does reach the apex. CONCLUSION: 1. Normal coronary angiogram. 2. Normal left ventricular end-diastolic pressure. POSTPROCEDURE MANAGEMENT: Medical treatment. MMODL / IJN: [id number] /
[2019-06-13 17:08] VITALS: BP 116/58; PULSE 48; RESP 16
== END ==
LOC: CATHCVL 08:00
PROVIDERS: ATTEND Internal Medicine Interventional Cardiology
DX: I20.0 Unstable angina (principal); I77.1 Stricture of artery; I10 Essential (primary) hypertension; E78.5 Hyperlipidemia, unspecified; Z87.891 Personal history of nicotine dependence; Z79.82 Long term (current) use of aspirin; Z79.890 Hormone replacement therapy; Z79.899 Other long term (current) drug therapy; E78.00 Pure hypercholesterolemia, unspecified
CPT/HCPCS: 93458; 80048; C1760; C1769; C1894; J2001; Q9967; J2250

== ENCOUNTER 2020-07-16 14:47 | Inpatient (IN) | payer MEDICARE, BC ==
[2020-07-16] MEDS ORDERED: ASPIRIN 81 MG PO STA (15:11)
--- NOTE | 2020-07-16 15:18 | ED ---
General Adult HPI - General Chief complaint: Recheck/Abnormal Lab/Rx Stated complaint: Head Mass Time Seen by Provider: 07/16/20 14:56 Source: patient, family Mode of arrival: wheelchair Limitations: no limitations - History of Present Illness Initial comments: Dictation was produced using [employer] dictation software. please excuse any grammatical, word or spelling errors. This patient was cared for during a federal and state declared state of ergency secondary to Covid 19 Chief Complaint: 85 year old female past medical history of melanoma presents with abnormal outpatient MRI History of Present Illness: 85-year-old female she had melanoma removed from her right upper extremity couple days ago. She had outpatient MRI and PET scan ordered in order to assess for any metastatic melanoma lesions. She had an MRI today. She was having her PET scan when her received the call saying that she had an abnormal result on her MRI. She was instructed to go to the emergency Department immediately. Patient has no complaints at this time. She denies any numbness and paresthesias or weakness. She denies any gait ataxia. The ROS documented in this emergency department record has been reviewed and confirmed by me. Those systems with pertinent positive or negative responses have been documented in the HPI. All other systems are other negative and/or noncontributory. PHYSICAL EXAM: General Impression: Alert and oriented x3, not in acute distress HEENT: Normocephalic atraumatic, extra-ocular movements intact, pupils equal and reactive to light bilaterally, mucous membranes moist. Cardiovascular: Heart regular rate and rhythm Chest: Able to complete full sentences, no retractions, no tachypnea Abdomen: abdomen soft, non-tender, non-distended, no organomegaly Musculoskeletal: Pulses present and equal in all extremities, no peripheral edema Motor: no focal deficits noted Neurological: CN II-XII grossly intact, no focal motor or sensory deficits noted, mild drift of the left lower extremity, non-aphasic, nondistended Skin: Right upper extremity wound clean dry and intact Psych: Normal affect and mood ED course: 85-year-old feel presents with abnormal outpatient MRI. Signs upon arrival are within acceptable limits. MR results were faxed to us from the [facility]. The results show that patient has 5-6 mm focal abnormal signal on the right frontal lobe favoring acute ischemia. She does have some left lower extremity neural findings. Case is discussed with Dr. rankin who will come and evaluate the patient at bedside. patient reports that she had her MRI done at [facility]. She does not have the disc. Patient was evaluated by Dr. Hyman at bedside. He is agreeable for patient be admitted to our hospital with CVA workup. Patient is agreeable with disposition. Dr. Huff is willing to accept patients care over the weekend. Patient's given aspirin. - Related Data Home Medications Medication Instructions Recorded Confirmed Aspirin/Acetaminophen/Caffeine 2 tab PO DAILY 04/11/19 07/16/20 [Excedrin Extra Strength Caplet] Cholecalciferol (Vitamin D3) 2,000 unit PO DAILY 04/11/19 07/16/20 [Vitamin D3] Cyanocobalamin (Vitamin B-12) 5,000 mcg PO DAILY 04/11/19 07/16/20 [Vitamin B-12] FLUoxetine HCL [PROzac] 20 mg PO DAILY 04/11/19 07/16/20 Magnesium Oxide [Mag-Ox] 400 mg PO Q48H 04/11/19 07/16/20 Omeprazole Magnesium [PriLOSEC OTC] 20 mg PO DAILY 04/11/19 07/16/20 Vitamin E (Dl,Tocopheryl Acet) 400 unit PO DAILY 04/11/19 07/16/20 [Vitamin E] atenoloL [Tenormin] 25 mg PO DAILY 06/09/19 07/16/20 hydrALAZINE HCL [Apresoline] 100 mg PO DAILY 06/09/19 07/16/20 Levothyroxine Sodium [Synthroid] 75 mcg PO DAILY 07/16/20 07/16/20 Pramipexole [Mirapex] 3 mg PO Q48H 07/16/20 07/16/20 Previous Rx's Medication Instructions Recorded hydroCHLOROthiazide [Hydrodiuril] 12.5 mg PO DAILY 30 Days #30 cap 04/14/19 Allergies Allergy/AdvReac Type Severity Reaction Status Date / Time CLONIDINE PATCH ADHESIVE Allergy Rash/Hives Uncoded 07/16/20 15:46 Review of Systems ROS Statement: Those systems with pertinent positive or pertinent negative responses have been documented in the HPI. ROS Other: All systems not noted in ROS Statement are negative. Past Medical History Past Medical History: Cancer, GERD/Reflux, Hypertension, Rheumatoid Arthritis (RA), Thyroid Disorder Additional Past Medical History / Comment(s): bladder cancer; pancreatisis History of Any Multi-Drug Resistant Organisms: None Reported Past Surgical History: Cholecystectomy, Joint Replacement, Tonsillectomy Additional Past Surgical History / Comment(s): bile duct bigger, bilateral knee replacements Past Anesthesia/Blood Transfusion Reactions: No Reported Reaction Past Psychological History: Depression Smoking Status: Never smoker Past Alcohol Use History: None Reported Past Drug Use History: None Reported - Past Family History Father Family Medical History: Cancer Brother(s) Family Medical History: Cancer General Exam Limitations: no limitations Course Vital Signs 07/16/20 14:49 Temperature 97.8 F Pulse Rate 55 L Respiratory 16 Rate Blood Pressure 176/71 O2 Sat by Pulse 98 Oximetry Medical Decision Making - Lab Data Result diagrams: 07/16/20 15:27 07/16/20 15:27 Lab Results 07/16/20 07/16/20 Range/Units 15:27 15:27 WBC 7.9 (3.8-10.6) k/uL RBC 3.63 L (3.80-5.40) m/uL Hgb 9.5 L (11.4-16.0) gm/dL Hct 30.5 L (34.0-46.0) % MCV 84.0 (80.0-100.0) fL MCH 26.2 (25.0-35.0) pg MCHC 31.2 (31.0-37.0) g/dL RDW 16.7 H (11.5-15.5) % Plt Count 256 (150-450) k/uL Neutrophils % 59 % Lymphocytes % 24 % Monocytes % 4 % Eosinophils % 9 % Basophils % 1 % Neutrophils # 4.7 (1.3-7.7) k/uL Lymphocytes # 1.9 (1.0-4.8) k/uL Monocytes # 0.3 (0-1.0) k/uL Eosinophils # 0.7 (0-0.7) k/uL Basophils # 0.1 (0-0.2) k/uL Hypochromasia Slight Anisocytosis Slight Sodium 139 (137-145) mmol/L Potassium 4.5 (3.5-5.1) mmol/L Chloride 110 H (98-107) mmol/L Carbon Dioxide 22 (22-30) mmol/L Anion Gap 7 mmol/L BUN 20 H (7-17) mg/dL Creatinine 1.12 H (0.52-1.04) mg/dL Est GFR (CKD-EPI)AfAm 51 (>60 ml/min/1.73 sqM) Est GFR (CKD-EPI)NonAf 45 (>60 ml/min/1.73 sqM) Glucose 85 (74-99) mg/dL Calcium 9.3 (8.4-10.2) mg/dL Disposition Clinical Impression: Abnormal MRI Disposition: ADMITTED IP TO THIS HOSP Condition: Fair Referrals: Cammy Stevens MD [Primary Care Provider] - 1-2 days Decision Time: 15:58
[2020-07-16 15:37] LABS: Anisocytosis Slight; Basophils # (A) 0.1 k/uL (0-0.2); Basophils % (A) 1 %; Eosinophils # (A) 0.7 k/uL (0-0.7); Eosinophils % (A) 9 %; HCT 30.5 % (34.0-46.0); HGB 9.5 gm/dL (11.4-16.0); Hypochromasia Slight; Lymphocytes # (A) 1.9 k/uL (1.0-4.8); Lymphocytes % (A) 24 %; MCH 26.2 pg (25.0-35.0); MCHC 31.2 g/dL (31.0-37.0); Mean Platelet Volume 8.1; Monocytes # (A) 0.3 k/uL (0-1.0); Monocytes % (A) 4 %; Neutrophils # (A) 4.7 k/uL (1.3-7.7); Neutrophils % (A) 59 %; Platelet Count 256 k/uL (150-450); RBC 3.63 m/uL (3.80-5.40); RDW 16.7 % (11.5-15.5); WBC 7.9 k/uL (3.8-10.6)
[2020-07-16 15:47] LABS: Calcium 9.3 mg/dL (8.4-10.2); Potassium 4.5 mmol/L (3.5-5.1)
[2020-07-16 15:58] LABS: Prothrombin Time 10.8 sec (9.0-12.0)
[2020-07-16 15:59] LABS: Partial Thromboplastin Time 21.2 sec (22.0-30.0)
[2020-07-16] MEDS ORDERED: NALOXONE 0.4 MG/ML 1 ML VIAL IV PRN (15:59)
--- NOTE | 2020-07-16 16:03 | P.HPIM ---
History of Present Illness H&P Date: 07/16/20 Faina Barrett, is an 85-year-old female patient of Dr. Stevens, who presented to emergency room after receiving a call from her physician asking her to go to ER due to abnormal brain MRI. Patient recently had a melanoma removed from her right upper extremity, she was undergoing testing including brain MRI and PET scan to assess if she has any metastatic melanoma, she had an MRI today she was having a PET scan when her received a call asking patient to go to emergency room immediately due to abnormal brain MRI which reportedly showed evidence of acute stroke. Unfortunately MRI report is not available in the computer system. Patient presented to emergency room and was evaluated by Dr. Amaya, she was denying any symptoms related to acute stroke there is no weakness or numbness in any of her extremities no change in her vision speech or gait per patient. Patient stated that she has history of hypertension, for which she takes multiple blood pressure medications, she also has history of hypothyroidism, gastroesophageal reflux disease, depression, and previous history of bladder cancer, treated with intra-bladder medications, she denies any history of cardiac disease or stroke in the past. She denies any history of diabetes mellitus. Patient used to smoke half a pack per day she quit in 1969, she denies any alcohol or any kind of illicit drug use. Past Medical History Past Medical History: Cancer, GERD/Reflux, Hypertension, Rheumatoid Arthritis (RA), Thyroid Disorder Additional Past Medical History / Comment(s): bladder cancer; pancreatisis History of Any Multi-Drug Resistant Organisms: None Reported Past Surgical History: Cholecystectomy, Joint Replacement, Tonsillectomy Additional Past Surgical History / Comment(s): bile duct bigger, bilateral knee replacements Past Anesthesia/Blood Transfusion Reactions: No Reported Reaction Past Psychological History: Depression Smoking Status: Never smoker Past Alcohol Use History: None Reported Past Drug Use History: None Reported - Past Family History Father Family Medical History: Cancer Brother(s) Family Medical History: Cancer Medications and Allergies Home Medications Medication Instructions Recorded Confirmed Type Aspirin/Acetaminophen/Caffeine 1 tab PO DAILY 04/11/19 06/13/19 History [Excedrin Extra Strength Caplet] Cholecalciferol (Vitamin D3) 2,000 unit PO DAILY 04/11/19 06/13/19 History [Vitamin D3] Cyanocobalamin (Vitamin B-12) 5,000 mcg PO DAILY 04/11/19 06/13/19 History [Vitamin B-12] FLUoxetine HCL [PROzac] 20 mg PO DAILY 04/11/19 06/13/19 History Magnesium Oxide [Mag-Ox] 400 mg PO Q48H 04/11/19 06/13/19 History Omeprazole Magnesium [PriLOSEC OTC] 20 mg PO DAILY 04/11/19 06/13/19 History Vitamin E (Dl,Tocopheryl Acet) 400 unit PO DAILY 04/11/19 06/13/19 History [Vitamin E] hydroCHLOROthiazide [Hydrodiuril] 12.5 mg PO DAILY 30 Days #30 cap 04/14/19 06/13/19 Rx atenoloL [Tenormin] 25 mg PO DAILY 06/09/19 06/13/19 History hydrALAZINE HCL [Apresoline] 100 mg PO TID 06/09/19 06/13/19 History Levothyroxine Sodium [Synthroid] 75 mcg PO DAILY 07/16/20 07/16/20 History Pramipexole [Mirapex] 3 mg PO Q48H 07/16/20 07/16/20 History Allergies Allergy/AdvReac Type Severity Reaction Status Date / Time CLONIDINE PATCH ADHESIVE Allergy Rash/Hives Uncoded 07/16/20 15:46 Physical Exam Vitals: Vital Signs Temp Pulse Resp BP Pulse Ox 07/16/20 14:49 97.8 F 55 L 16 176/71 98 Intake and Output 07/16/20 07/16/20 07/16/20 06:59 14:59 22:59 Other: Weight 77.111 kg In general patient is alert and oriented 3 in no apparent distress HEENT head normocephalic and atraumatic Neck is supple no JVD no goiter no lymphadenopathy Chest exam reveals a few scattered rhonchi no wheezing Cardiac exam reveals regular heart sounds no murmurs Abdomen is soft nontender no organomegaly Extremity exam reveals no edema no cyanosis or clubbing Neurological examination reveals no gross focal deficits Complete neurological examination was done by Dr. Saini neurology while I was in the room, please see neurology consult Results CBC & Chem 7: 07/16/20 15:27 07/16/20 15:27 Assessment and Plan Plan: 1. Abnormal MRI showing possible acute stroke, at this time will admit patient to telemetry check echocardiogram and carotid Doppler consult neurology 2. Recent history of melanoma removed from the right arm. 3. Underlying history of hypertension well-controlled on multiple blood pressure medications 4. Previous history of bladder cancer 5. Underlying history of hypothyroidism 6. Underlying history of depression 7. Underlying history of gastroesophageal reflux disease At this time will admit to telemetry monitoring Check echocardiogram and carotid Doppler Check TSH, check lipid profile, check A1c Consult neurology Will follow in the
--- NOTE | 2020-07-16 16:24 | US ---
EXAMINATION TYPE: US carotid duplex BILAT DATE OF EXAM: 07/16/2020 COMPARISON: US 04/12/2019 CLINICAL HISTORY: CVA. EXAM MEASUREMENTS: RIGHT: Peak Systolic Velocity (PSV) cm/sec ----- Right CCA: 98.3 ----- Right ICA: 104.2 ----- Right ECA: 106.2 ICA/CCA ratio: 1.1 RIGHT: End Diastole cm/sec ----- Right CCA: 17.5 ----- Right ICA: 15.6 ----- Right ECA: 5.7 LEFT: Peak Systolic Velocity (PSV) cm/sec ----- Left CCA: 106.1 ----- Left ICA: 102.2 ----- Left ECA: 62.8 ICA/CCA ratio: 1.0 LEFT: End Diastole cm/sec ----- Left CCA: 19.5 ----- Left ICA: 21.5 ----- Left ECA: 62.8 VERTEBRALS (direction of flow): Right Vertebral: Antegrade Left Vertebral: Antegrade Rhythm: Normal No significant velocity elevations. Mild amount of plaque visualized bilaterally IMPRESSION: No hemodynamically significant stenosis bilaterally. Any stenosis that may be present is less than 50%. Criteria for Assigning % of Stenosis / Diameter reduction (Estimation based on the indirect measurements of the internal carotid artery velocities (ICA PSV). 1. Normal (no stenosis)=ICA PSV < 125 cm/s: ratio < 2.0: ICA EDV<40 cm/s. 2. Less than 50% stenosis=ICA PSV < 125 cm/s: ratio < 2.0: ICA EDV<40 cm/s. 3. 50 to 69% stenosis=ICA PSV of 125 to 230 cm/s: ration 2.0 ? 4.0: ICA EDV 40-100 cm/s. 4. Greater than 70% stenosis to near occlusion= ICA PSV > 230 cm/s: ratio > 4.0: ICA EDV > 100 cm/s. 5. Near occlusion= ICA PSV velocities may be low or undetectable: variable ratio and ICA EDV. 6. Total occlusion=unable to detect flow.
[2020-07-16] MEDS ORDERED: BUTALB/APAP/CAFF 50-325-40MG TAB PO PRN (17:37)
--- NOTE | 2020-07-16 17:42 | P.CNNES ---
History of Present Illness Consult date: 07/16/20 Requesting physician: Hal Willams Reason for Consult: Abnormal brain MRI History of Present Illness: Patient is a 85-year-old female who was recently diagnosed with melanoma involving the right upper arm on 07/06/2020. She had 3 lymph nodes, which were also positive for cancer. Patient had undergone an MRI of the brain with and without contrast at [facility] today this morning. She also had a PET scan performed today at this hospital. Apparently brain MRI showed positive for stroke, for which she was referred to go to the ER. Patient's MRI of the brain with and without contrast from today showed no e nhancing intracranial mass. However there appears to be a 5-6 mm area of focal abnormal signal on diffusion imaging within the right temporal lobe. Acute ischemia is favored. 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 Remote pontine infarct. Patient did not bring CD of her MRI. I went in the radiology department to review images on the computer, which has access to [facility]. Dr. Edward and myself tried for almost 15 minutes, and the computer was not functioning. Patient's blood test shows normal WBC hemoglobin 9.5 platelets are 256 PT/PTT normal. Electrolytes normal, BUN 20, creatinine 1.12. TSH normal. Her lipid panel from 04/12/2019 showed cholesterol 193, LDL 116, HDL 40 and triglycerides 187. Previous hemoglobin A1c 6.0 on 08/29/2018. Patient states that she has no symptoms in her arms, headache, numbness or tingling anywhere in the body. She just feels slightly unsteady while walking, as if she is not very sure of her footing. She is able to go up and down stairs. However she is having difficulty standing on her left leg as compared to the right. Patient denies any slurred speech facial droop or any problem with the vision. Patient denies diabetes. She has hypertension for 2 years. She was a light smoker, quit in 1969. Patient does not take regular aspirin although she takes Excedrin for headaches every single day, 2-4 tablets a day for years. Previously she used to take even higher amount of Excedrins per day. Patient had a 2-D echo 04/14/2019 which revealed sinus rhythm, normal left-ventricular size, moderate concentric LVH, EF is 55-60%. Left atrium is mildly dilated. Moderate aortic valve sclerosis. Review of Systems As per HPI. All other 14 review of systems reviewed and completely unremarkable. Past Medical History Past Medical History: Cancer, GERD/Reflux, Hypertension, Rheumatoid Arthritis (RA), Thyroid Disorder Additional Past Medical History / Comment(s): bladder cancer; pancreatisis History of Any Multi-Drug Resistant Organisms: None Reported Past Surgical History: Cholecystectomy, Joint Replacement, Tonsillectomy Additional Past Surgical History / Comment(s): bile duct bigger, bilateral knee replacements Past Anesthesia/Blood Transfusion Reactions: No Reported Reaction Past Psychological History: Depression Smoking Status: Never smoker Past Alcohol Use History: None Reported Past Drug Use History: None Reported - Past Family History Father Family Medical History: Cancer Brother(s) Family Medical History: Cancer Medications and Allergies Home Medications Medication Instructions Recorded Confirmed Type Aspirin/Acetaminophen/Caffeine 2 tab PO DAILY 04/11/19 07/16/20 History [Excedrin Extra Strength Caplet] Cholecalciferol (Vitamin D3) 2,000 unit PO DAILY 04/11/19 07/16/20 History [Vitamin D3] Cyanocobalamin (Vitamin B-12) 5,000 mcg PO DAILY 04/11/19 07/16/20 History [Vitamin B-12] FLUoxetine HCL [PROzac] 20 mg PO DAILY 04/11/19 07/16/20 History Magnesium Oxide [Mag-Ox] 400 mg PO Q48H 04/11/19 07/16/20 History Omeprazole Magnesium [PriLOSEC OTC] 20 mg PO DAILY 04/11/19 07/16/20 History Vitamin E (Dl,Tocopheryl Acet) 400 unit PO DAILY 04/11/19 07/16/20 History [Vitamin E] hydroCHLOROthiazide [Hydrodiuril] 12.5 mg PO DAILY 30 Days #30 cap 04/14/19 07/16/20 Rx atenoloL [Tenormin] 25 mg PO DAILY 06/09/19 07/16/20 History hydrALAZINE HCL [Apresoline] 100 mg PO DAILY 06/09/19 07/16/20 History Levothyroxine Sodium [Synthroid] 75 mcg PO DAILY 07/16/20 07/16/20 History Pramipexole [Mirapex] 3 mg PO Q48H 07/16/20 07/16/20 History Allergies Allergy/AdvReac Type Severity Reaction Status Date / Time CLONIDINE PATCH ADHESIVE Allergy Rash/Hives Uncoded 07/16/20 15:46 Physical Examination - Vital Signs Vital Signs: Vital Signs Temp Pulse Resp BP Pulse Ox 07/16/20 16:49 98 F 80 18 151/76 96 07/16/20 14:49 97.8 F 55 L 16 176/71 98 Intake and Output 07/16/20 07/16/20 07/16/20 06:59 14:59 22:59 Other: Weight 77.111 kg On examination patient is an elderly female, in no acute distress. Patient is alert awake oriented to time place and person. Speech and language functions are normal. Attention and concentration fund of knowledge is ad equate. On cranial examination pupils are round and reactive to light, visual lamas are full on confrontation, extraocular muscles are intact with no nystagmus. Face is symmetric, tongue protrudes the midline. Palatal elevation and sensation normal hearing and shoulder shrug normal. On muscle strength testing there is no pronator drift and the strength is normal in arms and legs distally and proximally reflexes are 2+ all over and plantars are downgoing. Sensory touch is equal with no neglect. No ataxia for [id number] testing. Tone and bulk of muscles normal. Gait appeared normal. She was able to walk on her toes. She has slight difficulty with standing on the left leg as compared to the right. No carotid bruit or murmur, peripheral pulses present. No peripheral edema. 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 Patient has only mild gait difficulty with possible subjective left leg weakness. Examination is nonfocal except for slight difficulty with standing on the left leg. * Hypertension * Hyperlipidemia * Recent diagnosis of melanoma. Plan: * Patient has failed aspirin regimen. We will switch to Plavix 75 mg daily. * Patient has anemia, which could be related to chronic use of high-dose Excedrin. We will start Pepcid 20 mg twice a day for gastric ulcer prophylaxi s. * Patient had a carotid Doppler already performed, which is normal. * 2-D echo pending, to rule out any embolic source. * Fasting a.m. lipid panel and hemoglobin A1c. * Neurology coverage not available on the weekend. * PT OT evaluate gait. * We will give Fioricet as needed for headache, instead of Excedrin.
[2020-07-16] MEDS ORDERED: FAMOTIDINE 20 MG TAB PO SCH (18:00)
[2020-07-16] MEDS ORDERED: CLOPIDOGREL 75 MG TAB PO SCH (18:00)
[2020-07-16] MEDS: FAMOTIDINE 20 MG TAB PO SCH (18:20)
[2020-07-16 20:21] VITALS: RESP 18
[2020-07-17 02:22] LABS: Hemoglobin A1C 5.8 % (4.0-6.0)
[2020-07-17] MEDS: FAMOTIDINE 20 MG TAB PO SCH (08:29)
[2020-07-17 08:38] LABS: Cholesterol 203 mg/dL (<200); HDL Cholesterol 43 mg/dL (40-60); LDL Cholesterol,Calculated 119 mg/dL (0-99); Triglycerides 203 mg/dL (<150)
[2020-07-17] MEDS ORDERED: hydrALAZINE HCL 50 MG TAB PO SCH (10:00)
[2020-07-17] MEDS ORDERED: FLUoxetine HCL 20 MG CAP PO SCH (10:00)
[2020-07-17] MEDS ORDERED: atenoloL 25 MG TAB PO SCH (10:00)
[2020-07-17] MEDS ORDERED: LEVOTHYROXINE 75 MCG TAB PO SCH (10:00)
[2020-07-17] MEDS ORDERED: hydroCHLOROthiazide 12.5 MG CAP PO SCH (10:00)
[2020-07-17] MEDS ORDERED: PANTOPRAZOLE 40 MG TABLET PO SCH (10:00)
[2020-07-17 12:36] VITALS: BP 111/56; PULSE 58; TEMP 98.5
--- NOTE | 2020-07-17 13:26 | ECHOF ---
Referral Reason:CVA MEASUREMENTS -------- HEIGHT: 157.5 cm WEIGHT: 77.1 kg BP: IVSd: 1.3 cm (0.6 - 1.1) LVIDd: 4.4 cm (3.9 - 5.3) LVPWd: 1.5 cm (0.6 - 1.1) IVSs: 1.9 cm LVIDs: 2.0 cm LVPWs: 2.0 cm LAESV Index (A-L): 47.70 ml/m Ao Diam: 2.8 cm (2.0 - 3.7) AV Cusp: 1.5 cm (1.5 - 2.6) LA Diam: 4.0 cm (2.7 - 3.8) MV EXCURSION: 17.701 mm (> 18.000) MV EF SLOPE: 49 mm/s (70 - 150) EPSS: 0.7 cm MV E Mukund: 1.22 m/s MV DecT: 237 ms MV A Mukund: 1.45 m/s MV E/A Ratio: 0.85 AV maxP.96 mmHg AV meanP.99 mmHg RAP: 5.00 mmHg RVSP: 43.02 mmHg FINDINGS -------- This was a technically good study. The left ventricular size is normal. There is moderate concentric left ventricular hypertrophy. O verall left ventricular systolic function is normal with, an EF between 55 - 60 %. Increased LAP. G rade 2 Diastolic Dysfuntion. The right ventricle is normal in size. LA is severely dilated >40 ml/m2 The right atrial size is normal. Interatrial and interventricular septum intact. Aortic valve is trileaflet and is mildly thickened. There is mild aortic stenosis present. Peak/m jolynn gradient across the Aortic Valve is 20.96mmHg / 11.99mmHg. The mitral valve is normal. The mitral valve leaflets are mildly thickened. Mild mitral regurgita tion is present. The tricuspid valve appears structurally normal. Moderate tricuspid regurgitation present. There is mild pulmonary hypertension. The right ventricular systolic pressure, as measured by Doppler, is 43.02mmHg. There is no pulmonic regurgitation present. The aortic root size is normal. Normal inferior vena cava with normal inspiratory collapse consistent with estimated right atrial pre ssure of 5 mmHg. There is no pericardial effusion. CONCLUSIONS -------- 1. The left ventricular size is normal. 2. There is moderate concentric left ventricular hypertrophy. 3. Overall left ventricular systolic function is normal with, an EF between 55 - 60 %. 4. Increased LAP. Grade 2 Diastolic Dysfuntion. 5. LA is severely dilated >40 ml/m2 6. Aortic valve is trileaflet and is mildly thickened. 7. There is mild aortic stenosis present. 8. Peak/mean gradient across the Aortic Valve is 20.96mmHg / 11.99mmHg. 9. The mitral valve leaflets are mildly thickened. 10. Mild mitral regurgitation is present. 11. Moderate tricuspid regurgitation present. 12. There is mild pulmonary hypertension. 13. The right ventricular systolic pressure, as measured by Doppler, is 43.02mmHg. 14. There is no pericardial effusion. INTERVENTIONAL TECHNOLOGIST: Evita Hicks RDCS
--- NOTE | 2020-07-17 13:46 | P.DS ---
Providers Date of admission: 07/16/20 16:11 Expected date of discharge: 07/17/20 Attending physician: Latricia Huff Consults: 07/16/20 15:27 Consult Physician Routine Consulting Provider: Winter Rivera Consult Reason/Comments: abnormal mri Do you want consulting provider notified?: Already Contacted Primary care physician: Cammy Stevens Hospital Course: Diagnosis on discharge: 1. Abnormal MRI showing possible acute stroke, there was a 5-6 mm area of focal abnormal signal on diffusion imaging within the right temporal lobe. at this time will admit patient to telemetry check echocardiogram and carotid Doppler consult neurology 2. Recent history of melanoma removed from the right arm. 3. Underlying history of hypertension well-controlled on multiple blood pressure medications 4. Previous history of bladder cancer 5. Underlying history of hypothyroidism 6. Underlying history of depression 7. Underlying history of gastroesophageal reflux disease Hospital course: Faina Barrett, is an 85-year-old female patient of Dr. Stevens, who presented to emergency room after receiving a call from her physician asking her to go to ER due to abnormal brain MRI. Patient recently had a melanoma removed from her right upper extremity, she was undergoing testing including brain MRI and PET scan to assess if she has any metastatic melanoma, she had an MRI today she was having a PET scan when her received a call asking patient to go to emergency room immediately due to abnormal brain MRI which reportedly showed evidence of acute stroke. Unfortunately MRI report is not available in the computer system. Patient presented to emergency room and was evaluated by Dr. Amaya, she was denying any symptoms related to acute stroke there is no weakness or numbness in any of her extremities no change in her vision speech or gait per patient. Patient stated that she has history of hypertension, for which she takes multiple blood pressure medications, she also has history of hypothyroidism, gastroesophageal reflux disease, depression, and previous history of bladder cancer, treated with intra-bladder medications, she denies any history of cardiac disease or stroke in the past. She denies any history of diabetes mellitus. Patient used to smoke half a pack per day she quit in 1969, she denies any alcohol or any kind of illicit drug use. On 07/17/2020 patient was seen and examined on the telemetry floor she is alert and oriented 3 in no apparent distress she denies any symptoms there is no weakness or numbness in any of her extremities there is no change in her vision speech or gait, yesterday on exam patient was having difficulty standing up on the left leg, while she had no difficulty standing up on the right leg, this may or may not be related to the finding on MRI in the temporal lobe, most likely it is not related, rather it may be related to arthritis and history of bilateral knee replacement, patient continues to denies any new neurological deficit, she is very eager to go home, echocardiogram results are not yet available, but patient does not want to wait one extra day in the hospital, she will be discharged home today, she was given a prescription for Plavix 75 mg 1 daily per neurology recommendation, also Lipitor 10 mg once daily was added to her medication regimen. Patient will follow-up with her primary care physician Dr. Stevens, she will also follow-up with her patent paralegal Dr. Howard. Patient was instructed to return to the hospital if having any new symptoms. Please send a carbon copy to Dr. Howard from Dr. Stevens Patient Condition at Discharge: Fair Plan - Discharge Summary Discharge Rx Participant: No New Discharge Prescriptions: New Clopidogrel [Plavix] 75 mg PO Q24H tab Atorvastatin Calcium [Lipitor] 10 mg PO DAILY 30 Days #30 tab Continue Magnesium Oxide [Mag-Ox] 400 mg PO Q48H Vitamin E (Dl,Tocopheryl Acet) [Vitamin E] 400 unit PO DAILY Cyanocobalamin (Vitamin B-12) [Vitamin B-12] 5,000 mcg PO DAILY Cholecalciferol (Vitamin D3) [Vitamin D3] 2,000 unit PO DAILY Omeprazole Magnesium [PriLOSEC OTC] 20 mg PO DAILY Aspirin/Acetaminophen/Caffeine [Excedrin Extra Strength Caplet] 2 tab PO DAILY hydroCHLOROthiazide [Hydrodiuril] 12.5 mg PO DAILY 30 Days #30 cap hydrALAZINE HCL [Apresoline] 100 mg PO DAILY atenoloL [Tenormin] 25 mg PO DAILY Pramipexole [Mirapex] 3 mg PO Q48H Levothyroxine Sodium [Synthroid] 75 mcg PO DAILY Discontinued FLUoxetine HCL [PROzac] 20 mg PO DAILY Discharge Medication List Aspirin/Acetaminophen/Caffeine [Excedrin Extra Strength Caplet] 2 tab PO DAILY 04/11/19 [History] Cholecalciferol (Vitamin D3) [Vitamin D3] 2,000 unit PO DAILY 04/11/19 [History] Cyanocobalamin (Vitamin B-12) [Vitamin B-12] 5,000 mcg PO DAILY 04/11/19 [History] Magnesium Oxide [Mag-Ox] 400 mg PO Q48H 04/11/19 [History] Omeprazole Magnesium [PriLOSEC OTC] 20 mg PO DAILY 04/11/19 [History] Vitamin E (Dl,Tocopheryl Acet) [Vitamin E] 400 unit PO DAILY 04/11/19 [History] hydroCHLOROthiazide [Hydrodiuril] 12.5 mg PO DAILY 30 Days #30 cap 04/14/19 [Rx] atenoloL [Tenormin] 25 mg PO DAILY 06/09/19 [History] hydrALAZINE HCL [Apresoline] 100 mg PO DAILY 06/09/19 [History] Levothyroxine Sodium [Synthroid] 75 mcg PO DAILY 07/16/20 [History] Pramipexole [Mirapex] 3 mg PO Q48H 07/16/20 [History] Atorvastatin Calcium [Lipitor] 10 mg PO DAILY 30 Days #30 tab 07/17/20 [Rx] Clopidogrel [Plavix] 75 mg PO Q24H tab 07/17/20 [Rx] Follow up Appointment(s)/Referral(s): Cammy Stevens MD [Primary Care Provider] - 1-2 days (Call to set up appointment. Do not take Prozac due to interaction with Plavix, Discuss other medication options with Dr. Stevens.) Volodymyr Howard MD [STAFF PHYSICIAN] - 2 Weeks (Call to set up appointment. ) Patient Instructions/Handouts: Ischemic Stroke (DC) Activity/Diet/Wound Care/Special Instructions: Activity as tolerated. Diet as tolerated. Report symptoms of stroke IMMEDIATELY-call 911. F-facial drooping/numbness A-Arm or leg weakness, especially on one side of the body S-Speech changes T-Time-CALL 911!
[2020-07-17] MEDS ORDERED: PRAMIPEXOLE 1 MG TAB PO SCH (21:00)
[2020-07-18] MEDS ORDERED: MAGNESIUM OXIDE 400 MG TAB PO SCH (09:00)
[2020-07-18] MEDS ORDERED: VITAMIN E (DL,TOCOPHERYL ACET) 400 UNIT CAP PO SCH (09:00)
[2020-07-18] MEDS ORDERED: CHOLECALCIFEROL 1,000 UNIT TAB PO SCH (09:00)
[2020-07-18] MEDS ORDERED: CYANOCOBALAMIN 500 MCG TAB PO SCH (09:00)
--- NOTE | 2020-07-20 02:56 | CDI ---
Documentation Clarification Form Date: 07/20/20 From: Rodrigo France Phone: If you have a question about this query, please contact Lynne Sierra [employer] at [phone] between 8am and 5pm. Admit Date: 07/16/2020 Discharge Date: 07/17/2020 Patient Name: Faina Barrett Visit Number: [id number] ATTENTION: The Clinical Documentation Specialists (CDI) and [facility] Coding Staff appreciate your assistance in clarifying documentation. Please respond to the clarification below the line at the bottom and electronically sign. The CDI & [facility] Coding staff will review the response and follow-up if needed. Please note: Queries are made part of the Legal Health Record. If you have any questions, please contact the author of this message via ITS. Dear Refugio Cool MD., Depression is documented in throughout medical record. History/Risk factors: Gastric ulcer, ,headache, Metastatis melanoma of upper arm, Bladder cancer Treatment : Pramipexole [Mirapex] 3 mg DS stated "Underlying history of depression". In your professional opinion, can you please clarify if the condition can be further specified? Specify type if known Single or recurrent episode Mild, moderate, or severe Other (please specify) Unable to determine unable to determine MTDD
== END 2020-07-17 14:29 | disposition home or self-care (01) | DRG 66 ==
LOC: EC 14:47 → 3SCARD 16:11
PROVIDERS: ADMIT Internal Medicine; ATTEND Internal Medicine
DX: I63.9 Cerebral infarction, unspecified (principal); E03.9 Hypothyroidism, unspecified; E78.5 Hyperlipidemia, unspecified; I10 Essential (primary) hypertension; K21.9 Gastro-esophageal reflux disease without esophagitis; Z96.653 Presence of artificial knee joint, bilateral; R51 Headache; K25.9 Gastric ulcer, unspecified as acute or chronic, without hemorrhage or perforation; D64.9 Anemia, unspecified; T39.1X5A Adverse effect of 4-Aminophenol derivatives, initial encounter; M06.9 Rheumatoid arthritis, unspecified; R53.1 Weakness; R40.2363 Coma scale, best motor response, obeys commands, at hospital admission; R40.2143 Coma scale, eyes open, spontaneous, at hospital admission; R40.2253 Coma scale, best verbal response, oriented, at hospital admission; I35.0 Nonrheumatic aortic (valve) stenosis; Z85.820 Personal history of malignant melanoma of skin; Z85.51 Personal history of malignant neoplasm of bladder; Z87.891 Personal history of nicotine dependence; Z90.49 Acquired absence of other specified parts of digestive tract; Z90.89 Acquired absence of other organs; Z79.890 Hormone replacement therapy; Z79.82 Long term (current) use of aspirin; Z79.02 Long term (current) use of antithrombotics/antiplatelets; Z79.899 Other long term (current) drug therapy; Z80.9 Family history of malignant neoplasm, unspecified; Z88.5 Allergy status to narcotic agent
CPT/HCPCS: 36415; 78816; 80048; 80061; 83036; 84443; 85025; 85610; 85730; 93306; 93880; 99285

== ENCOUNTER → 2020-07-16 | Outpatient (CLI) | payer MEDICARE, BC ==
--- NOTE | 2020-07-17 20:12 | PE ---
EXAMINATION TYPE: PET CT fusion whole body DATE OF EXAM: 07/16/2020 COMPARISON: NONE HISTORY: Malignant melanoma diagnosed on excisional biopsy right shoulder 2 weeks ago. History of len dder cancer. TECHNIQUE: Following the intravenous administration of 9.51 mCi of F-18 FDG, whole body images are p erformed from the top of skull to the bottom of the feet. Images are reviewed on the computer in the coronal, axial, and sagittal planes. Reconstructed rotating images are created on [employer] and reviewed on the computer. A noncontrast CT is performed in conjunction with the PET scan . SCAN: Initial Scan FINDINGS: HEAD AND NECK: No areas of suspicious hypermetabolic uptake CHEST, MEDIASTINUM, AND HILAR REGION: Mild uptake surrounding the right shoulder presumed related to recent excisional surgery. No suspicious focal hypermetabolic uptake at this level. No suspicious hyp ermetabolic uptake bilaterally. Right axillary surgical clips are noted. There is slightly enlarged r ight axillary lymph node 1.9 x 1.0 cm on image 98 without abnormal hypermetabolic uptake near the jon gical clips. Correlate clinically. ABDOMEN AND PELVIS: Normal excretion is seen. No suspicious hypermetabolic uptake. OSSEOUS STRUCTURES: No suspicious hypermetabolic uptake. EXTREMITIES: Metallic hardware from bilateral knee arthroplasties. No suspicious hypermetabolic uptak e. OTHER CT: Mild to moderate calcified plaque left carotid bulb level. Scleral calcification bilateral globes.2 Cardiomegaly. Exaggerated thoracolumbar curvature. Moderate to severe disc space narrowing lumbosacra l junction. Vacuum disc phenomenon L4-L5 level. Grade 1 anterolisthesis L5 on S1. Prominent facet art hropathy lower lumbar spine. There is 2.8 cm thin-walled cyst left hepatic lobe image 144. Cholecystectomy clips. Few scattered pe lvic phleboliths. IMPRESSION: No suspicious hypermetabolic uptake to suggest residual or metastatic malignancy.
== END | disposition home or self-care (01) ==
LOC: RADPETMAIN 12:11
PROVIDERS: ATTEND Nurse Practitioner
DX: C77.9 Secondary and unspecified malignant neoplasm of lymph node, unspecified (principal); C43.61 Malignant melanoma of right upper limb, including shoulder; Z71.89 Other specified counseling; Z88.5 Allergy status to narcotic agent
CPT/HCPCS: 78816; A9552

== ENCOUNTER → 2022-01-06 | Outpatient (CLI) | payer MEDICARE, BC ==
--- NOTE | 2022-01-09 06:34 | PE ---
EXAMINATION TYPE: PET CT fusion whole body DATE OF EXAM: 01/06/2022 COMPARISON: PET/CT July 16, 2020 HISTORY: Malignant melanoma progress study. TECHNIQUE: Following the intravenous administration of 8.64 mCi of F-18 FDG, whole body images are p erformed from the top of skull to the midthighs. Images are reviewed on the computer in the coronal, axial, and sagittal planes. Reconstructed rotating images are created on independent workstation an d reviewed on the computer. A localization and attenuation correction CT is performed in conjunctio n with the PET scan. Blood glucose level equals 84. SCAN: Subsequent Scan FINDINGS: HEAD AND NECK: No new hypermetabolic masses or nodules CHEST, MEDIASTINUM, AND HILAR REGION: Recurrent hypermetabolic 2.7 x 1.9 cm mass or lymph node inferi or aspect of inferior right axillary surgical clips axial image 104 , max SUV is 24.83. Right axillar y surgical clips are redemonstrated just superior to this. No additional areas of abnormal hypermetabolic uptake. ABDOMEN AND PELVIS: Normal excretion is seen. No suspicious hypermetabolic uptake. OSSEOUS STRUCTURES: No suspicious hypermetabolic uptake. OTHER CT: Mild calcified plaque bilateral carotid bulb. Scleral calcification bilateral globes is red emonstrated. Cardiomegaly is again seen. Exaggerated thoracolumbar curvature redemonstrated on sagittal images. Mo derate to severe disc space narrowing lumbosacral junction. Vacuum disc phenomenon L4-L5 level. Grade 1 anterolisthesis L5 on S1. Prominent facet arthropathy lower lumbar spine. There is 3.3 cm thin-walled cyst left hepatic lobe axial image 151 redemonstrated. Cholecystectomy cl ips redemonstrated. Few scattered pelvic phleboliths. IMPRESSION: Active Neoplastic recurrence inferior right axillary level.
== END | disposition home or self-care (01) ==
LOC: RADPETMAIN 11:01
PROVIDERS: ATTEND Nurse Practitioner
DX: C77.9 Secondary and unspecified malignant neoplasm of lymph node, unspecified (principal); C43.61 Malignant melanoma of right upper limb, including shoulder
CPT/HCPCS: 78816; A9552

== ENCOUNTER → 2022-01-07 | Outpatient (CLI) | payer MEDICARE, BC ==
--- NOTE | 2022-01-07 10:17 | MR ---
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 TECHNIQUE: Multiplanar, multisequence images of the brain and brainstem is performed without and with IV contras t, utilizing 8 mL intravenous Gadavist . FINDINGS: The ventricles, basal cisterns and sulci over the convexities are mildly enlarged consistent with mil d atrophy but consistent with the patient's age. There is marked chronic ischemic white matter demyel ination and chronic ischemic change within the ankur. Based on diffusion-weighted imaging, there is no acute ischemic event there is no mass effect or shift of midline structures Following contrast administration, there is a tiny focus of contrast enhancement in the left cerebell ar hemisphere however this appears to be related to a venous structure and not likely metastatic dise ase. No other areas of pathologic enhancement are seen throughout the brain parenchyma. The intraorbital contents appear normal and symmetric. Visualized paranasal sinuses are well aerated. There is mild fluid in left mastoid air cells. IMPRESSION: 1. Atrophy and marked chronic ischemic white matter changes without evidence of an acute ischemic rika nt. 2. No mass effect or shift of midline structures. 3. Tiny focal area of enhancement in left cerebral hemisphere as described above. This most likely is related to a venous structure and not metastatic disease.
== END | disposition home or self-care (01) ==
LOC: RADMRIMAIN 08:49
PROVIDERS: ATTEND Nurse Practitioner
DX: G31.89 Other specified degenerative diseases of nervous system (principal); I67.82 Cerebral ischemia; C77.9 Secondary and unspecified malignant neoplasm of lymph node, unspecified; C43.61 Malignant melanoma of right upper limb, including shoulder
CPT/HCPCS: 70553; A9585

== ENCOUNTER → 2022-07-28 | Outpatient (CLI) | payer MEDICARE, BC ==
--- NOTE | 2022-07-28 10:40 | PE ---
EXAMINATION TYPE: PET CT fusion whole body DATE OF EXAM: 07/28/2022 COMPARISON: NONE HISTORY: Melanoma progress study. TECHNIQUE: Following the intravenous administration of 8.64 mCi of F-18 FDG, whole body images are p erformed from the top of skull to the bottom of the feet. Images are reviewed on the computer in the coronal, axial, and sagittal planes. Reconstructed rotating images are created on [employer] and reviewed on the computer. A localization and attenuation correction CT is performed in c onjunction with the PET scan. Blood glucose level equals 84 SCAN: Subsequent Scan FINDINGS: HEAD AND NECK: No new hypermetabolic masses or nodules CHEST, MEDIASTINUM, AND HILAR REGION: New scar tissue right lateral thorax axial image 76. No abnorma l hypermetabolic masses at this level on current study. No new areas of abnormal hypermetabolic uptak e. ABDOMEN AND PELVIS: Normal excretion is seen. No suspicious hypermetabolic uptake. OSSEOUS STRUCTURES: No suspicious hypermetabolic uptake. Lower extremities: No areas of abnormal hypermetabolic uptake. OTHER CT: Mild calcified plaque bilateral carotid bulb. Scleral calcification bilateral globes is red emonstrated. 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 Cardiomegaly is again seen. Exaggerated thoracolumbar curvature redemonstrated on sagittal images. Mo derate to severe disc space narrowing lumbosacral junction. Vacuum disc phenomenon L4-L5 level. Grade 1 anterolisthesis L5 on S1. Prominent facet arthropathy lower lumbar spine. There is 3.3 cm low dense lesion left hepatic lobe axial image 112 redemonstrated. Cholecystectomy cl ips redemonstrated. Few scattered pelvic phleboliths. Metallic hardware from bilateral knee surgery is noted. IMPRESSION: Successful interval treatment of right lateral thoracic melanoma recurrence. No abnormal hypermetabolic masses on current study to suggest new or residual melanoma.
== END | disposition home or self-care (01) ==
LOC: RADPETMAIN 07:24
PROVIDERS: ATTEND Internal Medicine Hematology & Oncology
DX: C41.1 Malignant neoplasm of mandible (principal)
CPT/HCPCS: 78816; A9552